=== PATIENT | female | born 1980 | race Caucasian/White ===

== ENCOUNTER 2024-09-21 06:07 | Day surgery (SDC) | payer OTHER, SELFPAY ==
[2024-09-21 06:23] VITALS: BMI 27.6
[2024-09-21 06:58] VITALS: BP 115/76; PULSE 69; RESP 16; TEMP 36.8; O2SAT 95
[2024-09-21] MEDS: SODIUM CHLORIDE 0.9 % (FLUSH) 10 ML SYRINGE IVF (06:58)
--- NOTE | 2024-09-21 07:12 | CRLHL7_ITS ---
For Patients: As a result of the Century Cures Act, medical imaging exams and procedure reports are released immediately into your electronic medical record. You may view this report before your referring provider. If you have questions, please contact your health care provider. Indication: Left foot Kidner procedure Technique: Five fluoroscopic images of the left foot. Fluoroscopic time 13.64 seconds. IMPRESSION: Fluoroscopic guidance for orthopedic procedure. Dictated by Jostin Ward MD @ 09/21/2024 12:27:41 PM (Electronically Signed)
[2024-09-21] MEDS: BUPIVACAINE 0.25% 30 ML INJECTION (07:14)
[2024-09-21] MEDS: CEFAZOLIN 2 GM INJ IVP (07:25)
--- NOTE | 2024-09-21 09:04 | W.ANESCHARGE ---
Anesthesia Charges Start Date/Time Anesthesia Start Date: 09/21/24 Anesthesia Start Time: 07:08 Stop Date/Time Anesthesia Stop Date: 09/21/24 Anesthesia Stop Time: 09:03
[2024-09-21 09:05] VITALS: BP 110/89; PULSE 75; RESP 16; TEMP 36.6; O2SAT 95
--- NOTE | 2024-09-21 09:06 | W.PODPROC_ITS ---
Date of Procedure: 09/21/24 Surgeon: Lee Babb DPM Pre-op Diagnosis: Painful accessory navicular bone left Post-op Diagnosis: Painful accessory navicular bone left Type of Procedure: Kidner procedure left foot Indications: Patient has had ongoing pain due to accessory navicular bone. She has not responded to conservative care. She has elected surgical intervention. Reviewed the procedure, recovery, expectation potential complications. These include but not limited to: Poor wound healing, infection, continued pain, potential need for future surgery, complex regional pain syndrome, deep venous thrombosis, pulmonary embolism and possible . She understands risks written consent was obtained. Site marked. Procedure Description: Patient brought the operating room placed supine position on operating table to time IV sedation was initiated per 30 mL of 0.25% Marcaine plain local anesthetic injected into the left foot. Patient was prepped and draped in sterile fashion. Standard time-out protocol followed. Left foot was exsanguinated the tourniquet inflated. Linear incision was made along the distal course of the posterior tibial tendon coursing over the navicular tuberosity. The incision was carried down through skin subcutaneous tissues. All bleeding vessels cauterized. The tendon attachment was then incised on its superior aspect. The tendon was reflected away from the accessory navicular bone and prominent navicular tuberosity. The accessory navicular bone was then removed and navicular tuberosity shaved down with a power rasp. C-arm confirmed excellent resection. Wound was irrigated normal sterile saline. To FiberTak anchors were placed into the navicular tuberosity under C-arm guidance. The more proximal anchor pulled out we tried a PushLock which also pulled out. Finally a SwiveLock 3.5 mm anchor was inserted without difficulty and remained in good position. The posterior tibial tendon was then advanced onto the navicular tuberosity and anchored in place with the SwiveLock anchor and the more distal FiberTak anchor. Excellent repair was achieved. Additional reinforcement of the tendon attachment was achieved with 2-0 Vicryl. Wound was irrigated normal sterile saline. The subcutaneous tissues reapproximated 4-0 Monocryl and skin closed with 4-0 Prolene. Sterile dressing was applied and the tourniquet was released. Normal capillary fill time returned all digits. She was placed in a well-padded [id number] posterior splint with mild plantar flexion and inversion. She was taken from OR to [facility]day [facility] with vital signs stable and vascular status intact. She will be discharged per same-day surgery protocol. Both written and verbal postop instructions given. She is given oxycodone for pain. She will follow up in clinic in 2 days. Anesthesia: MAC and local Hemostasis: ankle Estimated blood loss (mL): 2 Implants: Arthrex FiberTak anchor x1, Arthrex 3.5 mm SwiveLock anchor x1 Specimens: none sent Disposition: same day
[2024-09-21 09:15] VITALS: BP 117/73; PULSE 73; RESP 16; O2SAT 95
[2024-09-21 09:30] VITALS: BP 105/66; PULSE 65; RESP 16; O2SAT 96
--- NOTE | 2024-09-21 09:36 | W.ANESCHARGE ---
Anesthesia Charges Start Date/Time Anesthesia Start Date: 09/21/24 Anesthesia Start Time: 07:08 Stop Date/Time Anesthesia Stop Date: 09/21/24 Anesthesia Stop Time: 09:03
[2024-09-21 09:45] VITALS: BP 108/72; PULSE 65; RESP 16; O2SAT 96
--- NOTE | 2024-09-21 10:10 | REH.PT ---
Pt is s/p Left Kidner procedure. NWB LE LE for 4 weeks. Lives with spouse in a rambler with 3 step entry. Ind community amb without an AD at baseline. Pt was fitted for crutches and issued for home use. Instructed pt in gt level surfaces with 2 crutches, basic transfers and verbally instructed in stairs sequence and car transfers. Goals of PT were met. DC. No Charge.
== END 2024-09-21 10:21 | disposition home or self-care (01) ==
LOC: OR 06:09
PROVIDERS: PCP Family Medicine; Visit Provider Podiatrist
PROC: (CPT 27650; principal; 2024-09-21 07:00)
DX: Q74.2 Other congenital malformations of lower limb(s), including pelvic girdle (principal); M79.672 Pain in left foot
CPT/HCPCS: 28238; 01480; 73630; 76000; 81025; A4580; C1713; J0665; J0690; J1100; J2405; J2704; J3010

== ENCOUNTER 2025-01-02 13:25 | Emergency (ER) | payer BC, SELFPAY ==
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
[2025-01-02 13:32] VITALS: BP 104/70; PULSE 91; RESP 16; TEMP 36.9; O2SAT 96; BMI 26.6
--- NOTE | 2025-01-02 13:43 | ED_ITS ---
HPI - Female Genitourinary General Time Seen by Provider: 13:43 Date Seen: 01/02/25 Chief complaint: Urogenital Problems, Female Stated complaint: UTI and clinic told to come in Time Seen by Provider: 01/02/25 13:36 Source: patient and RN notes reviewed Mode of arrival: ambulatory Limitations: no limitations Related Data Home Medications ?Medication ?Instructions ?Recorded ?Confirmed albuterol sulfate 2.5 mg/3 mL 2.5 mg inhalation PRN 11/01/22 11/01/22 (0.083 %) solution for nebulization citalopram 20 mg tablet 20 mg PO QDAY 11/01/22 09/21/24 lorazepam 0.5 mg tablet 0.5 mg PO PRN 11/01/22 11/01/22 valacyclovir 1 gram tablet See Rx Instructions .Route .COMPLEX 11/01/22 09/21/24 dicyclomine 20 mg tablet 20 mg PO QID 01/02/25 01/02/25 Allergies Allergy/AdvReac Type Severity Reaction Status Date / Time No Known Drug Allergies Allergy Verified 09/21/24 06:55 PFSH PFS Medical History (Updated 09/15/24 @ 11:37 by Beltran Ro, ALEXANDRA) Situational anxiety ?F41.8 - Other specified anxiety disorders (ICD-10) Generalized anxiety disorder ?F41.1 - Generalized anxiety disorder (ICD-10) Mild intermittent asthma, uncomplicated ?J45.20 - Mild intermittent asthma, uncomplicated (ICD-10) Myopia ?H52.10 - Myopia, unspecified eye (ICD-10) Claustrophobia ?F40.240 - Claustrophobia (ICD-10) Family History (Updated 11/01/22 @ 14:59 by Debi Fay ~ [facility], [facility]) Maternal Grandmother Breast cancer Father Lung cancer Social History (Updated 11/01/22 @ 14:59 by Debi Fay ~ [facility], [facility]) Smoking Status: Former smoker What tobacco products do you use: cigarettes Smoking quit date/years: <= 15 years ago Do you use any of these nicotine containing products: None Second hand tobacco smoke exposure: No How often do you have a drink containing alcohol: never AUDIT-C Alcohol total score: 0 Non-prescribed substance use: denies use Caffeine: Yes (1/day) Are you using contraception or practicing any form of control: No (neg test in pre op, pt requesting to sign form) Exam Const: Vital Signs, click to edit/add: Vital Signs - 24 hr 01/02/25 13:32 Temperature 98.5 F Pulse Rate [Pulse Oximeter] 91 Respiratory Rate 16 Blood Pressure [Ri ght Upper Arm] 104/70 Pulse Oximetry 96 Course Vital Signs Vital signs: Initial Vital Signs Temperature 98.5 F 01/02/25 13:32 Temperature Source Temporal Artery Scan 01/02/25 13:32 Pulse Rate 91 01/02/25 13:32 Pulse Rhythm Regular 01/02/25 13:32 Respiratory Rate 16 01/02/25 13:32 Blood Pressure 104/70 01/02/25 13:32 Blood Pressure Mean 81 01/02/25 13:32 Blood Pressure Position Sitting 01/02/25 13:32 Pulse Oximetry 96 01/02/25 13:32 Vital Signs Temperature 98.5 F 01/02/25 13:32 Pulse Rate 91 01/02/25 13:32 Respiratory Rate 16 01/02/25 13:32 Blood Pressure 104/70 01/02/25 13:32 Pulse Oximetry 96 01/02/25 13:32 Temperature 98.5 F 01/02/25 13:32 Pulse Rate 91 01/02/25 13:32 Respiratory Rate 16 01/02/25 13:32 Blood Pressure 104/70 01/02/25 13:32 Pulse Oximetry 96 01/02/25 13:32 Discharge Plan Discharge Prescriptions: No Action citalopram 20 mg tablet 20 mg PO QDAY Patient Comments: TAKE 1 TABLET BY MOUTH EVERY DAY IN THE MORNING lorazepam 0.5 mg tablet 0.5 mg PO PRN Patient Comments: TAKE 1 TABLET (0.5 MG) BY MOUTH ONCE DAILY IF NEEDED FOR ANXIETY. valacyclovir 1 gram tablet See Rx Instructions .ROUTE .COMPLEX Patient Comments: TAKE 2 TABLETS BY MOUTH IN THE MORNING AND 2 TABLETS IN THE EVENING. DO ALL THIS FOR 1 DAY. Rx Instructions: 2 tabs bid albuterol sulfate 2.5 mg /3 mL (0.083 %) solution for nebulization 2.5 mg inhalation PRN Patient Comments: INHALE 3 ML (2.5 MG) VIA A NEBULIZER EVERY 4 HOURS IF NEEDED FOR WHEEZING 1ST CHOICE. dicyclomine 20 mg tablet 20 mg PO QID Follow Up/Referrals: Rona Aguillon DO [Primary Care Provider] -
[2025-01-02 13:45] LABS: Appearance Urine Clear (Clear); Bilirubin Urine Negative (Negative); Blood Urine Negative (Negative); Color Urine Yellow (Yellow); Glucose Urine Negative (Negative); Ketones Urine Negative (Negative); Leukocyte Esterase Urine Negative (Negative); Nitrite Urine Negative (Negative); Protein Urine Negative (Negative); Specific Gravity Urine <= 1.005 (1.000-1.030); Urobilinogen Urine 0.2 (0.2-1.0)
[2025-01-02 14:04] LABS: Bacteria Urine Few; RBC Urine 0-2 (0-2); Squamous Epithelial Cell Urine Few (None-Few); WBC Urine 0-2 (0-5)
[2025-01-02 14:28] LABS: Ur HCG Qualitative* Negative (Negative)
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
[2025-01-02 14:43] LABS: Lactate* 0.6 mmol/L (0.5-1.9)
[2025-01-02 14:45] LABS: Basophils Absolute Auto 0.04 K/uL (0.00-0.30); Basophils Percent Auto 0.6 % (0.0-3.0); Eosinophils Absolute Auto 0.08 K/uL (0.00-0.50); Eosinophils Percent Auto 1.1 % (0.0-7.0); Hematocrit 38.1 % (33.0-51.0); Hemoglobin* 12.8 gm/dL (12.0-16.0); Immature Granulocytes Abs Auto 0.05 K/uL (0.00-0.30); Immature Granulocytes Pct Auto 0.7 %; Lymphocytes Percent Auto 32.3 % (20-44); Mean Corpuscular HGB Conc 34 gm/dL (32-36); Mean Corpuscular Hemoglobin 29 pg (26-34); Mean Corpuscular Volume 87 fL (80-100); Monocytes Percent Auto 6.6 % (0.0-11.0); Neutrophils Absolute Auto 4.19 K/uL (1.7-7.0); Neutrophils Percent Auto 58.7 % (42.0-72.0); Platelet Count* 212 K/uL (140-440); RDW Coefficient of Variation % 13.8 % (11.5-15.5); Red Blood Count 4.38 m/uL (4.00-5.20); White Blood Count* 7.13 K/uL (4.50-11.00)
[2025-01-02 14:53] LABS: Slide Review Reflex No
--- NOTE | 2025-01-02 14:54 | ED.GENADULT ---
HPI - General Adult General Chief complaint: Urogenital Problems, Female Stated complaint: UTI and clinic told to come in Time Seen by Provider: 01/02/25 13:36 Source: patient Mode of arrival: ambulatory Limitations: no limitations History of Present Illness HPI narrative: 44-year-old female presenting today with concerns about UTI. Patient states that 4 days ago she developed increased urinary frequency and urgency. Then 3 days ago she developed hematuria. She was seen by [facility] health provider and was given Macrobid. She has taken 4 doses of the Macrobid. She states that the bleeding has completely stopped and that she generally feels better with decreased urinary frequency and urgency. No dysuria present. However she felt very tired yesterday and spent most of the day in bed and this morning when she woke up she had bilateral low back discomfort. She discussed her symptoms with the triage nurse who recommended she come into the emergency department. No fevers, nausea or vomiting. No diarrhea or constipation. Last bowel movement yesterday. No pain with movement. Again, urinary symptoms that she was feeling previously have resolved. Related Data Home Medications ?Medication ?Instructions ?Recorded ?Confirmed albuterol sulfate 2.5 mg/3 mL 2.5 mg inhalation PRN 11/01/22 11/01/22 (0.083 %) solution for nebulization citalopram 20 mg tablet 20 mg PO QDAY 11/01/22 09/21/24 lorazepam 0.5 mg tablet 0.5 mg PO PRN 11/01/22 11/01/22 valacyclovir 1 gram tablet See Rx Instructions .Route .COMPLEX 11/01/22 09/21/24 dicyclomine 20 mg tablet 20 mg PO QID 01/02/25 01/02/25 Allergies Allergy/AdvReac Type Severity Reaction Status Date / Time No Known Drug Allergies Allergy Verified 09/21/24 06:55 Review of Systems Status of ROS: Reports: 10 or more systems reviewed and unremarkable except as noted in History and below [facility] Medical History Situational anxiety ?F41.8 - Other specified anxiety disorders (ICD-10) Generalized anxiety disorder ?F41.1 - Generalized anxiety disorder (ICD-10) Mild intermittent asthma, uncomplicated ?J45.20 - Mild intermittent asthma, uncomplicated (ICD-10) Myopia ?H52.10 - Myopia, unspecified eye (ICD-10) Claustrophobia ?F40.240 - Claustrophobia (ICD-10) Family History Maternal Grandmother Breast cancer Father Lung cancer Social History Smoking Status: Former smoker What tobacco products do you use: cigarettes Smoking quit date/years: <= 15 years ago Do you use any of these nicotine containing products: None Second hand tobacco smoke exposure: No How often do you have a drink containing alcohol: never AUDIT-C Alcohol total score: 0 Non-prescribed substance use: denies use Caffeine: Yes (1/day) Are you using contraception or practicing any form of control: No (neg test in pre op, pt requesting to sign form) Exam Narrative: Exam Narrative: Well-nourished well-developed patient in no acute distress. Alert and oriented. Answers questions appropriately. Mood and affect are appropriate. Thoughts are goal oriented and rational. No tangential or magical thinking noted. Patient speaks in full sentences without needing to catch her breath. She does not appear ill or toxic. HEENT: Normocephalic atraumatic. Pupils are equally round reactive to light. Extraocular muscles are intact. Conjunctivae are moist without any icterus noted. Moist mucous membranes. Cardiovascular: Heart is regular rate and rhythm S1 and S2 are present without any murmurs. Lungs: Clear to auscultation bilaterally no wheezes rhonchi or rales are appreciated. Patient takes deep breaths without any discomfort. Abdomen: Soft and nontender nondistended with normal bowel sounds. No guarding or rebound. No masses or organomegaly appreciated. No suprapubic pain. No CVA tenderness. Extremities: Bilateral lower extremities are without edema. Skin: Well perfused without any obvious rashes. Back: Normal appearance. Higher she has no significant discomfort on palpation of the paraspinal musculatures of the lower spine, which is where she points to the location of her pain. Const: Vital Signs, click to edit/add: Vital Signs - 24 hr 01/02/25 13:32 Temperature 98.5 F Pulse Rate [Pulse Oximeter] 91 Respiratory Rate 16 Blood Pressure [Ri ght Upper Arm] 104/70 Pulse Oximetry 96 Course Course ED Course: Because of her recent symptoms of UTI we did proceed with some blood work today. CBC is entirely normal. UA looks normal. Negative test. Chemistries are normal. Normal CRP. Vital Signs Vital signs: Initial Vital Signs Temperature 98.5 F 01/02/25 13:32 Temperature Source Temporal Artery Scan 01/02/25 13:32 Pulse Rate 91 01/02/25 13:32 Pulse Rhythm Regular 01/02/25 13:32 Respiratory Rate 16 01/02/25 13:32 Blood Pressure 104/70 01/02/25 13:32 Blood Pressure Mean 81 01/02/25 13:32 Blood Pressure Position Sitting 01/02/25 13:32 Pulse Oximetry 96 01/02/25 13:32 Vital Signs Temperature 98.5 F 01/02/25 13:32 Pulse Rate 91 01/02/25 13:32 Respiratory Rate 16 01/02/25 13:32 Blood Pressure 104/70 01/02/25 13:32 Pulse Oximetry 96 01/02/25 13:32 Temperature 98.5 F 01/02/25 13:32 Pulse Rate 91 01/02/25 13:32 Respiratory Rate 16 01/02/25 13:32 Blood Pressure 104/70 01/02/25 13:32 Pulse Oximetry 96 01/02/25 13:32 Medical Decision Making MDM Narrative Medical decision making narrative: 44-year-old female status post UTI currently being treated. His symptoms are improving. Low back pain started, likely secondary to decreased movement yesterday- musculoskeletal discomfort. Continue treatment as is. Lab Data Lab results reviewed: Yes I reviewed the patient's lab results Labs: Lab Results 01/02/25 01/02/25 01/02/25 Range/Units 13:40 14:38 Unknown WBC 7.13 (4.50-11.00) K/uL RBC 4.38 (4.00-5.20) m/uL Hgb 12.8 (12.0-16.0) gm/dL Hct 38.1 (33.0-51.0) % MCV 87 (80-100) fL MCH 29 (26-34) pg MCHC 34 (32-36) gm/dL RDW Coeff of Krystina 13.8 (11.5-15.5) % Plt Count 212 (140-440) K/uL Neut % (Auto) 58.7 (42.0-72.0) % Lymph % (Auto) 32.3 (20-44) % [place] % (Auto) 6.6 (0.0-11.0) % Eos % (Auto) 1.1 (0.0-7.0) % Baso % (Auto) 0.6 (0.0-3.0) % Neut # (Auto) 4.19 (1.7-7.0) K/uL Lymph # (Auto) 2.30 (0.90-2.90) K/uL [place] # (Auto) 0.50 (0.00-0.90) K/UL Eos # (Auto) 0.08 (0.00-0.50) K/uL Baso # (Auto) 0.04 (0.00-0.30) K/uL Abs Immat Gran (auto) 0.05 (0.00-0.30) K/uL Imm/Tot Granulo (auto) 0.7 % Sodium 137 (135-149) mmol/L Potassium 4.1 (3.6-5.1) mmol/L Chloride 105 (96-114) mmol/L Carbon Dioxide 27 (20-32) mmol/L Anion Gap 5 L (7-15) mEq/L BUN 11 (5-24) mg/dL Creatinine 0.8 (0.5-1.5) mg/dL Estimated Creat Clear 86.36 Estimated GFR 93 ml/min Glucose 98 (60-115) mg/dL Lactate 0.6 (0.5-1.9) mmol/L Calcium 9.3 (8.4-10.6) mg/dL Total Bilirubin 0.2 (0.1-1.5) mg/dL Direct Bilirubin 0.2 (0.0-0.5) mg/dL AST 24 (12-35) U/L ALT 25 (4-35) U/L Alkaline Phosphatase 44 (40-150) U/L C-Reactive Protein < 0.5 L (0.5-1.0) mg/dL Total Protein 6.4 (6.0-8.3) g/dL Albumin 3.9 (3.3-5.0) g/dL Urine Color Yellow (Yellow) Urine Appearance Clear (Clear) Urine pH 6.0 (5.0-8.5) Ur Specific Kirby <= 1.005 (1.000-1.030) Urine Protein Negative (Negative) Urine Glucose (UA) Negative (Negative) Urine Ketones Negative (Negative) Urine Blood Negative (Negative) Urine Nitrite Negative (Negative) Urine Bilirubin Negative (Negative) Urine Urobilinogen 0.2 (0.2-1.0) Ur Leukocyte Esterase Negative (Negative) Urine RBC 0-2 (0-2) Urine WBC 0-2 (0-5) Ur Squamous Epith Cells Few (None-Few) Urine Bacteria Few A (None) Urine HCG, Qual Negative (Negative) Discharge Plan Discharge Clinical Impression: UTI (urinary tract infection) Patient Disposition: Home, Self-Care Condition: Stable Additional Instructions: No evidence of infection or kidney dysfunction found today. Continue treatment as prescribed. Prescriptions: No Action citalopram 20 mg tablet 20 mg PO QDAY Patient Comments: TAKE 1 TABLET BY MOUTH EVERY DAY IN THE MORNING lorazepam 0.5 mg tablet 0.5 mg PO PRN Patient Comments: TAKE 1 TABLET (0.5 MG) BY MOUTH ONCE DAILY IF NEEDED FOR ANXIETY. valacyclovir 1 gram tablet See Rx Instructions .ROUTE .COMPLEX Patient Comments: TAKE 2 TABLETS BY MOUTH IN THE MORNING AND 2 TABLETS IN THE EVENING. DO ALL THIS FOR 1 DAY. Rx Instructions: 2 tabs bid albuterol sulfate 2.5 mg /3 mL (0.083 %) solution for nebulization 2.5 mg inhalation PRN Patient Comments: INHALE 3 ML (2.5 MG) VIA A NEBULIZER EVERY 4 HOURS IF NEEDED FOR WHEEZING 1ST CHOICE. dicyclomine 20 mg tablet 20 mg PO QID Follow Up/Referrals: Rona Aguillon DO [Primary Care Provider] - Stand Alone Forms: [facility] Info Instructions
[2025-01-02 15:00] LABS: Albumin* 3.9 g/dL (3.3-5.0); Chloride* 105 mmol/L (96-114); Sodium* 137 mmol/L (135-149)
[2025-01-02 15:01] LABS: Potassium* 4.1 mmol/L (3.6-5.1)
[2025-01-02 15:02] LABS: Creatinine* 0.8 mg/dL (0.5-1.5); Est. Creatinine Clearance* 86.36; Estimated Glomerular Filt Rate 93 ml/min
[2025-01-02 15:03] LABS: Alanine Aminotransferase* 25 U/L (4-35); Alkaline Phosphatase* 44 U/L (40-150); Anion Gap 5 mEq/L (7-15); Aspartate Amino Transferase* 24 U/L (12-35); Bilirubin Direct* 0.2 mg/dL (0.0-0.5); Bilirubin Total* 0.2 mg/dL (0.1-1.5); Blood Urea Nitrogen* 11 mg/dL (5-24); Carbon Dioxide* 27 mmol/L (20-32); Total Protein* 6.4 g/dL (6.0-8.3)
[2025-01-02 15:04] LABS: Calcium* 9.3 mg/dL (8.4-10.6); Glucose* 98 mg/dL (60-115)
[2025-01-02 15:15] LABS: C Reactive Protein* < 0.5 mg/dL (0.5-1.0)
== END 2025-01-02 15:41 | disposition home or self-care (01) ==
PROVIDERS: Emergency Provider Family Medicine; PCP Family Medicine
DX: N39.0 Urinary tract infection, site not specified (principal)
CPT/HCPCS: 36415; 80048; 80076; 81001; 81025; 83605; 85025; 86140; 87086; 99283; 99284